=== PATIENT | female | born 1975 | race Caucasian/White ===

== ENCOUNTER 2016-11-09 00:48 | Emergency (ER) | payer MEDICAID ==
[~2016-11-09] VITALS: Ht 157.5 cm; Wt 63.5 kg
[2016-11-09 00:56] VITALS: BP 143/91
--- NOTE | 2016-11-09 01:06 | NUR ---
TO ER BED 5
--- NOTE | 2016-11-09 01:10 | NUR ---
41Y/F PT. PRESENTS TO ED WITH C/O HIGH BP WITH HEADACHE X 1 DAY. PT. STATES HEADCHE THEN CHECK BP 150/112. HX. HTN. AAO X4, AMBULATORY WITH STEADY GAIT. RESPIRATIONS ROOM AIR, EVEN AND UNLABORED. C/O HEADACHE 09/29. VSS, ER MD MADE AWARE OF PT. STATUS.
--- NOTE | 2016-11-09 01:40 | NUR ---
Patient being evaluated by at bedside.
[2016-11-09] MEDS ORDERED: KETOROLAC 60 MG/2 ML VIAL IM ONE (01:45)
--- NOTE | 2016-11-09 02:01 | NUR ---
Patient discharged with v/s stable. Written and verbal after care instructions given and explained. Patient alert, oriented and verbalized understanding of instructions. Ambulatory with steady gait. All questions addressed prior to discharge. ID band removed. Patient advised to follow up with PMD. Rx of ZOFRAN 8 MG, MOTRIN 600 MG given. Patient educated on indication of medication including possible reaction and side effects. Opportunity to ask questions provided and answered.
[2016-11-09 02:02] VITALS: BP 140/80
== END 2016-11-09 02:01 | disposition home or self-care (01) ==
LOC: MED 00:48 → EDSEX 00:48 → MED 02:01
DX: R51 Headache (principal); R11.0 Nausea; I10 Essential (primary) hypertension
CPT/HCPCS: 81002; 81025; 96372; 99283; J1885